=== PATIENT | male | born 1950 | race Caucasian/White ===

== ENCOUNTER 2021-07-18 06:04 | Inpatient (IN) ==
--- NOTE | 2021-07-01 09:56 | PAT Medication Instructions ---
Medication Instructions Date of Service July 01, 2021 Home Medications amlodipine 10 mg tablet 10 mg PO QPM aspirin 81 mg tablet,delayed release 81 mg PO QPM atorvastatin 40 mg tablet 20 mg PO HS calcitriol 0.25 mcg capsule 0.25 mcg PO QPM diclofenac sodium 1 % topical gel 2 g TOPICAL BID PRN finasteride 5 mg tablet 5 mg PO QPM fosinopril 40 mg tablet 40 mg PO QAM lidocaine 5 % topical patch 1 patch TOPICAL DAILY PRN metformin 500 mg tablet 500 mg PO BID multivitamin 1 tab PO QPM potassium chloride 20 mEq tablet,extended release 20 meq PO QAM sertraline 100 mg tablet 100 mg PO QAM sildenafil 100 mg tablet (Viagra) 100 mg PO DAILY PRN terazosin 10 mg capsule 10 mg PO QPM triamterene 75 mg-hydrochlorothiazide 50 mg tablet 1 tab PO QAM Continue as directed lidocaine 5 % topical patch 1 patch TOPICAL DAILY PRN (avoid placement near surgery site prior to surgery) ASK your prescriber and surgeon aspirin 81 mg tablet,delayed release 81 mg PO QPM STOP taking 24 hours before surgery diclofenac sodium 1 % topical gel 2 g TOPICAL BID PRN DO NOT take the morning of surgery fosinopril 40 mg tablet 40 mg PO QAM metformin 500 mg tablet 500 mg PO BID potassium chloride 20 mEq tablet,extended release 20 meq PO QAM sildenafil 100 mg tablet (Viagra) 100 mg PO DAILY PRN triamterene 75 mg-hydrochlorothiazide 50 mg tablet 1 tab PO QAM Take morning of surgery With a small sip of water, OTHERWISE NOTHING TO EAT OR DRINK AFTER MIDNIGHT: sertraline 100 mg tablet 100 mg PO QAM Take evening before surgery amlodipine 10 mg tablet 10 mg PO QPM atorvastatin 40 mg tablet 20 mg PO HS calcitriol 0.25 mcg capsule 0.25 mcg PO QPM finasteride 5 mg tablet 5 mg PO QPM metformin 500 mg tablet 500 mg PO BID multivitamin 1 tab PO QPM sildenafil 100 mg tablet (Viagra) 100 mg PO DAILY PRN (if needed) terazosin 10 mg capsule 10 mg PO QPM Other Notes If you have any questions please call us at [phone] or [phone] or [phone] or [phone]
--- NOTE | 2021-07-04 09:06 | Anesthesiology Consultation ---
Date of Service July 04, 2021 Assessment & Plan (1) Encounter for pre-operative examination: - Abnormal preop EKG: Awaiting PCP response. - COVID screening: Per assessment on 07/04: Travel screen- Patient had [place] family reunion with 40 people 06/28/21 (outdoor). Patient vaccinated. Preop COVID testing will be > 2 weeks after large gathering event. No known COVID-19 positive contacts or current COVID-19 related symptoms. Surgeon arranging preop COVID testing. Awaiting results. Chart Review Chart Review: Patient NOT seen in Pre Admission Testing Teaching & Discussion Pre-Anesthesia Teaching/Discussion Notes: Instructed NPO after midnight before surgery,except medications with 15 cc of water. Medication instructions provided according to the PAT guidelines. History Surgery Operation Date: 07/18/21 10:05 Proposed Procedures p L2-L4 Revision Decompression, L2-S1 Fusion, Spinal Cord Monitoring - Carlos Rogel, Height/Weight Height: 5 ft 8.5 in Weight: 98.8 kg Allergies Allergy/AdvReac Type Severity Reaction Status Date / Time No Known Allergies Allergy Verified 07/01/21 07:55 Medications Home Medications Medication Instructions Recorded Confirmed Last Taken amlodipine 10 mg tablet 10 mg PO QPM 07/01/21 07/01/21 Unknown aspirin 81 mg tablet,delayed 81 mg PO QPM 07/01/21 07/01/21 Unknown release atorvastatin 40 mg tablet 20 mg PO HS 07/01/21 07/01/21 Unknown calcitriol 0.25 mcg capsule 0.25 mcg PO QPM 07/01/21 07/01/21 Unknown diclofenac sodium 1 % topical gel 2 g TOPICAL BID PRN 07/01/21 07/01/21 Unknown finasteride 5 mg tablet 5 mg PO QPM 07/01/21 07/01/21 Unknown fosinopril 40 mg tablet 40 mg PO QAM 07/01/21 07/01/21 Unknown lidocaine 5 % topical patch 1 patch TOPICAL DAILY PRN 07/01/21 07/01/21 Unknown metformin 500 mg tablet 500 mg PO BID 07/01/21 07/01/21 Unknown multivitamin 1 tab PO QPM 07/01/21 07/01/21 Unknown potassium chloride 20 mEq 20 meq PO QAM 07/01/21 07/01/21 Unknown tablet,extended release sertraline 100 mg tablet 100 mg PO QAM 07/01/21 07/01/21 Unknown sildenafil 100 mg tablet (Viagra) 100 mg PO DAILY PRN 07/01/21 07/01/21 Unknown terazosin 10 mg capsule 10 mg PO QPM 07/01/21 07/01/21 Unknown triamterene 75 1 tab PO QAM 07/01/21 07/01/21 Unknown mg-hydrochlorothiazide 50 mg tablet Past Medical History Medical History Anxiety Arthritis Cancer BCC (neck) Chronic back pain Depression Diabetes NIDDM Enlarged prostate History of COVID-19 Dx 11/2020 ([facility]) > symptoms at time of SOB, fever, achiness > Hospitalized [facility]/PNA > resolved Hyperlipidemia Hypertension Post traumatic stress disorder Spinal stenosis Exercise / Class Metabolic Activity II 4-5 Yardwork/Stairs/Walk up hill Past Family History Family History Family/Other Family history of diabetes mellitus 2 GRANDCHILDREN Mother Family hx of colon cancer Past Surgical History Surgical History History of arthroscopy Left knee History of back surgery Lumbar History of carpal tunnel release Right History of colonoscopy Multiple History of laparotomy Removal one testicle History of oral surgery History of repair of rotator cuff Left History of tonsillectomy History of vasectomy x2 Hx of hand surgery Left thumb S/P foot surgery, right x4 (s/p injury) Past Anesthesia History No Hx of Anesthesia Complications and No Family Hx of Anesthesia Complications History of PONV No Hx of PONV and No Hx of Motion Sickness Social History Smoking Status: Former smoker Do You Dip or Chew Tobacco: No Smoking End Date: Quit 18 years ago Hx Alcohol Use: Yes Alcohol type: beer alcohol intake frequency: 3 or more drinks per day Alcohol Intake Frequency Comment: 2-3 beers/day Hx Substance Use: No Review of Systems Patient denies chest pain, shortness of breath, dyspnea on exertion, fever, chills, cough, wheezing, palpitations. Physical Exam Vital Signs VITALS BP 138/78 P 82 TEMP 97.8 SP02 95%RA RESP 18 PHYSICAL Full cervical extension range of motion. Full TMJ range of motion. TMD 3.5 finger breaths Mallampati Score 3 Dentition: 6 upper implants that attaches to plate Lungs: clear throughout to auscultation Cardiac: regular rate and rhythm, no murmurs noted Spine: normal Carotid arteries: negative bruit Extremities: no edema Lab Results Anesthesia Preop Results Results Anesthesia Widget: WBC 6.69 K/uL (4.8-10.8) 07/04/21 Hgb 15.0 g/dL (14.0-18.0) 07/04/21 Hct 42.7 % (42-52) 07/04/21 Plt 273 K/uL (130-400) 07/04/21 Na 134 mmol/L (136-145) L 07/04/21 K 3.2 mmol/L (3.5-5.1) L 07/04/21 Cl 95 mmol/L (98-107) L 07/04/21 CO2 34 mmol/L (21-32) H 07/04/21 BUN 12 mg/dl (7-18) 07/04/21 Creat 0.76 mg/dl (0.6-1.4) 07/04/21 Glucose Level 103 mg/dl (70-99) H 07/04/21 PT 10.1 Seconds (9.0-12.0) 07/04/21 PTT 25.6 Seconds (21.0-31.0) 07/04/21 INR 1.0 (0.9-1.1) 07/04/21 HA1c 5.6 % (4.5-5.6) 07/04/21 Urine Color Yellow 07/04/21 Urine Appearance Clear (Clear) 07/04/21 Urine pH 8.5 (4.5-7.5) H 07/04/21 Urine Specific [place] 1.014 (1.000-1.030) 07/04/21 Urine Protein Negative (Negative) 07/04/21 Urine Glucose (UA) Negative (Negative) 07/04/21 Urine Ketones Negative (Negative) 07/04/21 Urine Blood Negative (Negative) 07/04/21 Urine Nitrite Negative (Negative) 07/04/21 Urine Bilirubin Negative (Negative) 07/04/21 Urine Urobilinogen Negative (Negative) 07/04/21 Urine Leukocyte Esterase Negative (Negative) 07/04/21 Blood Type O Positive 07/04/21 Antibody Screen NEGATIVE 07/04/21 Lab Comments: Mild hypokalemia (already on potassium supplementation). At anesthesiologist discretion AM DOS if recheck potassium level needed AM DOS. Testing Electrocardiogram Date: 07/04/21 NSR at 76bpm. RBBB. Septal infarct, age undetermined. Chest X-Ray Date: 07/04/21 Findings: + NAD
[~2021-07-18 06:04] MED LIST: ACETAMINOPHEN 500 MG TAB PO SCH; CeleBREX 200 MG CAP PO SCH; GABAPENTIN 300 MG CAP PO SCH; LR 15ML/HR IV SCH; ceFAZolin 2000MG 2,000 MG/15 ML SYR IV SCH
[2021-07-18] MEDS ORDERED: ROCURONIUM BROMIDE 10 MG/ML 5 ML VIAL IV ONE (06:51)
[2021-07-18] MEDS ORDERED: ONDANSETRON INJ 2 MG/ML 2 ML VIAL ONE (06:51)
[2021-07-18] MEDS ORDERED: KETAMINE 50 MG/5 ML SYRINGE ONE (06:51)
[2021-07-18] MEDS ORDERED: fentaNYL citrate 100 MCG/2 ML VIAL ONE (06:51)
[2021-07-18] MEDS ORDERED: MIDAZOLAM HCL 1 MG/ML 2ML VIAL ONE (06:51)
[2021-07-18] MEDS ORDERED: DEXAMETHASONE SOD INJ 4 MG/ML VIAL ONE (06:51)
[2021-07-18] MEDS ORDERED: LIDOCAINE 2% 2 ML VIAL/AMP(20MG/ML) INFIL ONE (06:51)
[2021-07-18] MEDS ORDERED: PROPOFOL IV EMULSION 10 MG/ML 20 ML VIAL IV ONE (06:51)
[2021-07-18] MEDS ORDERED: GLYCOPYRROLATE 0.2 MG/ML VIAL ONE ×3 (06:58→10:31)
[2021-07-18] MEDS ORDERED: EPINEPHrine INJ 1 MG/ML AMP ONE (07:00)
[2021-07-18] MEDS ORDERED: BUPIVACAINE 0.5 % 5 MG/1 ML MPF 30ML VIAL ONE (07:00)
[2021-07-18] MEDS ORDERED: ATROPINE SULFATE 0.1 MG/ML 10ML SYR IV PRN (07:26)
[2021-07-18] MEDS ORDERED: HYDROmorphone INJ 2 MG/ML SYR/VIAL IV PRN (07:26)
[2021-07-18] MEDS ORDERED: ONDANSETRON INJ 2 MG/ML 2 ML VIAL IV PRN ×2 (07:26→12:05)
[2021-07-18] MEDS ORDERED: ePHEDrine sulfate 50 MG/ML AMP IV PRN (07:26)
--- NOTE | 2021-07-18 07:34 | History & Physical Bridge Note ---
Date of Service July 18, 2021 History & Physical Bridge Note I have examined the patient, reviewed the History & Physical and in the interval since the performance of the History & Physical I have noted the following changes of clinical significance: no changes noted
--- NOTE | 2021-07-18 07:37 | History & Physical Report ---
Date of Service July 18, 2021 Assessment & Plan (1) Neurogenic claudication due to lumbar spinal stenosis: Plan: L2-L4 revision decompression, L2-S1 fusion History of Present Illness Chief Complaint: Back and bilateral leg pain Primary Care Provider: NO PCP This is a 71-year-old male that presents with chronic back and bilateral leg pain after failing course of nonoperative care is here for surgical invention. Allergies Allergy/AdvReac Type Severity Reaction Status Date / Time No Known Allergies Allergy Verified 07/18/21 06:22 Home Medications Medication Instructions Recorded Confirmed Type amlodipine 10 mg tablet 10 mg PO QPM 07/01/21 07/18/21 History aspirin 81 mg tablet,delayed 81 mg PO QPM 07/01/21 07/18/21 History release atorvastatin 40 mg tablet 20 mg PO HS 07/01/21 07/18/21 History calcitriol 0.25 mcg capsule 0.25 mcg PO QPM 07/01/21 07/18/21 History diclofenac sodium 1 % topical gel 2 g TOPICAL BID PRN 07/01/21 07/18/21 History finasteride 5 mg tablet 5 mg PO QPM 07/01/21 07/18/21 History fosinopril 40 mg tablet 40 mg PO QAM 07/01/21 07/18/21 History lidocaine 5 % topical patch 1 patch TOPICAL DAILY PRN 07/01/21 07/18/21 History metformin 500 mg tablet 500 mg PO BID 07/01/21 07/18/21 History multivitamin 1 tab PO QPM 07/01/21 07/18/21 History potassium chloride 20 mEq 20 meq PO QAM 07/01/21 07/18/21 History tablet,extended release sertraline 100 mg tablet 100 mg PO QAM 07/01/21 07/18/21 History sildenafil 100 mg tablet (Viagra) 100 mg PO DAILY PRN 07/01/21 07/18/21 History terazosin 10 mg capsule 10 mg PO QPM 07/01/21 07/18/21 History triamterene 75 1 tab PO QAM 07/01/21 07/18/21 History mg-hydrochlorothiazide 50 mg tablet (Maxzide) Past Med/Surg History Medical History Anxiety Arthritis Cancer BCC (neck) Chronic back pain Depression Diabetes NIDDM Enlarged prostate History of COVID-19 Dx 11/2020 ([facility]) > symptoms at time of SOB, fever, achiness > Hospitalized [facility]/PNA > resolved Hyperlipidemia Hypertension Post traumatic stress disorder Spinal stenosis Surgical History History of arthroscopy Left knee History of back surgery Lumbar History of carpal tunnel release Right History of colonoscopy Multiple History of laparotomy Removal one testicle History of oral surgery History of repair of rotator cuff Left History of tonsillectomy History of vasectomy x2 Hx of hand surgery Left thumb S/P foot surgery, right x4 (s/p injury) Family History Family/Other Family history of diabetes mellitus 2 GRANDCHILDREN Mother Family hx of colon cancer Social History Smoking Status: Former smoker Smoking End Date: Quit 18 years ago; Second Hand Exposure: Yes (PARENTS SMOKED,FRIENDS); Do You Dip or Chew Tobacco: No; Hx Alcohol Use: Yes Alcohol type: beer Hx Substance Use: No Preferred Language: Sami Communication Ability: Effective Production Consultant Required: No Beliefs That Will Affect Care: None Current Living Situation: Spouse and Family current occupational status: retired Other Information That Helps Us Care for You: No Feels Safe at Home: Yes Safety Concerns: Feels Safe At This Time Assistive Devices: Glasses and Hearing Aid - Bilateral Assistive Devices Comment: IMPLANTS FRONT UPPER Physical Exam Physical Exam: Patient is alert and oriented Heart regular rhythm Lungs clear to auscultation Results & Data ([facility]) Vital Signs (Past 12 Hours) Vital Signs Temp Pulse Resp BP Pulse Ox 07/18/21 06:30 36.7 C 91 H 18 141/75 H 95
[2021-07-18] MEDS ORDERED: PHENYLEPHRINE 100MCG/ML 5ML SYR ONE (08:53)
[2021-07-18] MEDS ORDERED: ePHEDrine sulfate 50 MG/ML SYR ONE (08:53)
[2021-07-18] MEDS ORDERED: NEOSTIGMINE METHYLSULFATE 1 MG/ML 10ML VIAL ONE (10:31)
[2021-07-18] MEDS ORDERED: FLOSEAL HEMOSTATIC MATRIX 10ML TOP ONE (10:34)
--- NOTE | 2021-07-18 10:40 | Operative Report ---
Post Operative Report Pre & Post Diagnosis Operation Date: 07/18/21 07:45 Pre-Op Diagnosis: Spinal Stenosis, Lumbar Region with neurogenic Claudication Post-Op Diagnosis: Spinal Stenosis, Lumbar Region with neurogenic Claudication I identified the patient and participated in the time-out.: Yes Procedure Operation Date: 07/18/21 07:45 Actual Procedures #1 revision decompression with medial facetectomies and foraminotomies L2-3 L3-4 and L4-5. #2 posterior spinal fusion L2-3 L3-4 L4-5 L5-S1. #3 placed posterior segmental instrumentation L2-S1. #4 interbody fusion L3-4 and L4-L5. #5 placement peek cage 9 x 26 mm at L3-L4 and 12 x 26 mm at L4-L5. #6 placement locally harvested morselized autograft in the posterior gutters. #7 placement of infuse collagen sponge, master graft in the posterior gutters and I factor in the interbody space. Surgeon Carlos Rogel, DO [employer] Pro Delacruz Estimated Blood Loss 400 Findings See Below The patient is 5 foot 8 inches tall weighing over 9 kg with a BMI in excess of 33. Patient's body habitus did contribute to significant technical difficulty and at least 25% increase to the operative time. Specimens None Indications This is a 71-year-old male who presents above-mentioned diagnosis and course of nonoperative care is here for surgical invention. Description of Procedure Patient was met with identified informed consent obtained. Patient was then taken to the operative suite underwent ablation placed in a prone position the Elio table atop the Osman frame. All bony prominences well-padded eyes inspected to ensure no external pressure placed upon the. This point the lumbar spine was prepped and draped in normal sterile fashion. Sharp dissection with the assistance of Bovie cautery performed down to and exposing the remaining lamina and transverse processes of L2 L3-L4-L5 and S1 levels bilaterally. Then performed revision decompression medial facetectomies and foraminotomies L2-3 L3-4 and L4-5 addressing significant spinal stenosis. Pedicle screws were then placed in L2 L3-L4-L5 and S1 levels bilaterally with assistance of fluoroscopy and appropriate sized rita placed. By way of a transforaminal approach on the right complete discectomy of L4-L5 was performed endplates curetted to subcortically bone and a 12 x 26 mm peek cage filled I factor tapped in position. Then proceeded to L3-L4 and again by way of a transforaminal portion right a complete discectomy was performed endplates curetted to subcortically bone and a 9 x 26 mm peek cage filled I factor tapped in position. Rods were then locked in final position bilaterally. The transverse processes of L2 L3-L4-L5 and sacral ala burred to subcortically bone. Infuse collagen sponge master graft local autograft was placed in the posterior gutters. 15 round JAYLAN drain inserted. Incision was then closed with 1 Vicryl in the fascia 2-0 Vicryl subcutaneously and 4 Monocryl for final skin closure. Steri-Strip sterile dressings placed. Patient waken taken to PACU stable condition. Please note spinal cord monitoring was utilized at the procedure no changes noted. Lastly Pro Delacruz was present at the entire surgery involved in patient positioning complex portions of the surgery and final skin closure. I attest to the content of the Intraoperative Record and any orders documented therein. Any exceptions are noted below.
[2021-07-18] MEDS: fentaNYL citrate 100 MCG/2 ML VIAL IV PRN ×2 (11:23→11:28)
--- NOTE | 2021-07-18 11:36 | Fluoroscopy Report ---
FL lumbar spine 2-3V CLINICAL HISTORY: L2-L4 REVISION L2-S1 FUSION COMPARISON STUDY: None. FLUOROSCOPY TIME: 47 seconds. FLUOROSCOPIC IMAGES: 2 FINDINGS: Note is made of a multilevel posterior decompression. There are bilateral pedicle screws at the L2, L3, L4, L5 and S1 levels with interconnecting rods. There are L3-L4 and L4-L5 discectomies w ith interbody spacer placement. Hardware is intact. There are no unexpected radiopaque foreign bodies . IMPRESSION: Fluoroscopy provided during revision spine surgery with posterior decompression and fusi on extending from L2 through S1. ACT 112: Negative or not required by law. Electronically signed by: Nando Wilson M.D. 07/18/2021 11:34 AM
[2021-07-18] MEDS ORDERED: hydrOXYzine HCl 25 MG TAB PO PRN (12:05)
[2021-07-18] MEDS ORDERED: NALOXONE HCL 0.4 MG/1 ML VIAL/CARP IV PRN (12:05)
[2021-07-18] MEDS ORDERED: LORazepam 0.5 MG TAB PO PRN (12:05)
[2021-07-18] MEDS ORDERED: DO NOT ADMINISTER FLU VACCINE PRN (12:05)
[2021-07-18] MEDS ORDERED: ALUMINUM/MAGNESIUM SUSP 30 ML UDC PO PRN (12:05)
[2021-07-18] MEDS ORDERED: DO NOT ADMINISTER PNEUMOCOCCAL VACCINE PRN (12:05)
[2021-07-18] MEDS ORDERED: SOD PHOSPHATE/SOD BIPHOSPHATE ENEMA 132 ML BTL PR PRN (12:05)
[2021-07-18] MEDS ORDERED: METOCLOPRAMIDE HCL INJ 5 MG/ML 2 ML VIAL IV PRN (12:05)
[2021-07-18] MEDS ORDERED: PHARMACY GLYCEMIC MGMT CONSULT PRN (12:05)
[2021-07-18] MEDS ORDERED: PROMETHAZINE HCL 12.5 MG in SODIUM CHLORIDE 0.9% 50 ML IV PRN (12:05)
[2021-07-18] MEDS ORDERED: ACETAMINOPHEN 1,000 MG/100 ML VIAL IV PRN (12:05)
[2021-07-18] MEDS ORDERED: ONDANSETRON 4 MG OD TAB PO PRN (12:05)
[2021-07-18] MEDS ORDERED: bisacodyL 10 MG SUPP PR PRN (12:05)
[2021-07-18] MEDS ORDERED: LORazepam 0.5 MG/1 ML VIAL IV PRN (12:05)
[2021-07-18] MEDS ORDERED: HYDROmorphone INJ 0.5 MG/0.5 ML SYR IV PRN (12:05)
[2021-07-18] MEDS ORDERED: SODIUM CHLORIDE 0.9% 1000ML 1,000 ML IV SCH (12:05)
[2021-07-18] MEDS ORDERED: traMADol HCL 50 MG TABLET PO PRN (12:05)
[2021-07-18] MEDS ORDERED: MAGNESIUM HYDROXIDE SUSP 30 ML UDC PO PRN (12:05)
[2021-07-18] MEDS ORDERED: diphenhydrAMINE Capsule 25 MG CAP PO PRN (12:05)
[2021-07-18] MEDS ORDERED: FAMOTIDINE 20 MG TAB PO PRN (12:05)
[2021-07-18] MEDS ORDERED: ACETAMINOPHEN 500 MG TAB PO PRN (12:05)
[2021-07-18] MEDS: INSULIN ASPART 100 UNITS/ML 3 ML PEN SC SCH ×4 (12:58→20:53)
[2021-07-18] MEDS ORDERED: NovoLIN-N (NPH) PER UNIT CHARGE SQ ONE (13:00)
--- NOTE | 2021-07-18 13:15 | Anesthesiology Progress Note ---
Date of Service July 18, 2021 Anesthesia Post Procedure Vital Signs Vital Signs: Temp Pulse Pulse Resp BP BP Pulse Ox 07/18/21 13:12 36.7 C 67 16 118/74 98 07/18/21 12:30 37.4 C 71 16 106/68 99 07/18/21 11:50 36.4 C L 73 17 112/66 95 07/18/21 11:40 79 12 109/55 L 96 07/18/21 11:30 74 12 131/69 97 07/18/21 11:20 75 12 131/67 98 07/18/21 11:10 79 12 131/86 99 07/18/21 11:03 36.5 C 79 14 151/75 H 98 07/18/21 06:30 36.7 C 91 H 18 141/75 H 95 Pain Intensity Lower Back: Pain Intensity: 5 Transfer of Care Handoff Completed per policy Notes Mental Status: alert / awake / arousable and participated in evaluation Patient Amnestic to Procedure: Yes Nausea / Vomiting: adequately controlled Pain: adequately controlled Airway Patency, RR, SpO2: stable & adequate BP & HR: stable & adequate Hydration State: stable & adequate Anesthetic Complications: no major complications apparent and Pt Satisfied with anesthetic care
--- NOTE | 2021-07-18 14:16 | Pharmacy Report ---
Pharmacy Glycemic Short Note 2 - Date of Service July 18, 2021 - Glycemic Short BSG Results (Last 24 hours): 07/18/21 07/18/21 06:28 11:06 POC Glucose 129 H 149 H OUTPATIENT ANTIDIABETIC REGIMEN: * Metformin 500mg PO BIDM * A1c = 5.6% on 07/04/21 ASSESSMENT: * 71yo T2DM male with excellent outpatient control * Pt is maintained on oral antidiabetic agents as an outpatient * Oral agents are not recommended for inpatient use d/t drug interactions, changing PO intake, and difficulty titrating for acute hyper/hypoglycemia. ADA recommends re-initiating outpatient oral agents 1-2 days prior to discharge if/when appropriate if they were held on admission. * Will hold oral agents for admission and utilize SQ basal bolus insulin regimen which is the recommended regimen for inpatient glycemic control. * Will initiate weight based insulin dosing for insulin yash patient and titrate based on BSG trends. * Pt did receive Dexamethasone 8mg IV in OR- will give a one time dose of NPH to cover the hyperglycemic effects of a one time long acting steroid. Will dose conservatively since BSG is NOT above 150 mg/dl PLAN FOR INPATIENT GLYCEMIC CONTROL: * Hold outpatient oral diabetes medications * Basal insulin * NPH 25 units (0.25 units/kg) SQ SQ x 1 dose NOW * Bolus insulin * NovoLog per scale ACHS or Q6hrs while NPO * Goal Range: Low 110 mg/dL - High 140 mg/dL * Correction Factor: 20 mg/dL/unit * Nutritional / Prandial insulin per carb ratio of 1 unit per 7 grams CHO consumed PLAN FOR DISCHARGE: * No changes needed to outpatient regimen at NH. A1c is in goal range.
[2021-07-18] MEDS: ceFAZolin 2000MG 2,000 MG/15 ML SYR IV SCH ×2 (14:59→23:30)
[2021-07-18] MEDS: oxyCODONE HCL IR 5 MG TAB (IMMEDIATE RELEASE) PO PRN ×2 (15:05→20:53)
--- NOTE | 2021-07-18 15:54 | Hospitalist Consultation ---
Date of Consultation July 18, 2021 Assessment & Plan (1) Neurogenic claudication due to lumbar spinal stenosis: Pro Guillen is a 71-year-old male with a past medical history of anxiety, arthritis, BCC of the neck, depression, jah-ltqjwns-rpvhzetex diabetes mellitus, BPH, hyperlipidemia, hypertension, PTSD, and spinal stenosis who was admitted to [facility] for planned surgical intervention of spinal stenosis with neurogenic claudication. Medicine has been consulted for postoperative management, on 07/18/2021 patient underwent #1 revision decompression with medial facetectomies and foraminotomies L2-3 L3-4 and L4-5. #2 posterior spinal fusion L2-3 L3-4 L4-5 L5-S1. #3 placed posterior segmental instrumentation L2-S1. #4 interbody fusion L3-4 and L4-L5. #5 placement peek cage 9 x 26 mm at L3-L4 and 12 x 26 mm at L4-L5. #6 placement locally harvested morselized autograft in the posterior gutters. #7 placement of infuse collagen sponge. Spinal stenosis, lumbar with neurogenic claudication status post surgical intervention Management per primary surgical team Fluid management per primary surgical team (2) Anxiety: History of anxiety Continue sertraline 100 mg daily (3) Diabetes: Noninsulin-dependent type 2 diabetes mellitus BSG postop 149 Hold home metformin -Last A1c 06/2021 5.6%, excellent control -Goal BSG 061169, weight-based SSI correction factor 50, ratio 20 (4) Enlarged prostate: BPH Continue Terazosin 10 mg p.o. nightly, finasteride 5 mg p.o. nightly (5) Hyperlipidemia: Hyperlipidemia Continue atorvastatin 20 mg p.o. at bedtime Resume aspirin 81 mg daily 24 hours postop or per primary team recommendations (6) Post traumatic stress disorder: At baseline per patient. Reports good benefit from SSRI as otherwise noted. Continue SSRI. Patient feels that he overall is doing well and is at his normal baseline, has not had recent nightmares or exacerbation. No acute change in management at this time, no SI/HI (7) Hypertension: Hypertension Normotensive postoperatively Hold Maxide, may resume 24 hours postop Hold fosinopril, resume 24 hours postop Continue amlodipine 10 mg nightly DVT prophylaxis: Per primary team Diet/fluids: Per primary team In summary Pro Guillen is a 71-year-old male who is doing well postoperatively following surgical intervention for spinal stenosis on 07/18/2021. His diabetes is well controlled outpatient with an A1c of 5.6%, may hold home metformin and will add on very gentle sliding scale insulin. May resume home regimen on discharge. He is normotensive following surgery, may resume amlodipine tonight and hold [place]/thiazide and resume tomorrow. History of Present Illness Reason for Consultation: Postoperative management of hypertension Requesting Physician: Carlos Rogel DO Attending Physician: Carlos Rogel DO History of Present Illness Pro Guillen is a 71-year-old male with a past medical history of anxiety, arthritis, BCC of the neck, depression, cfi-rkvwvss-bdifhzjpv diabetes mellitus, BPH, hyperlipidemia, hypertension, PTSD, and spinal stenosis who was admitted to [facility] for planned surgical intervention of spinal stenosis with neurogenic claudication. Medicine has been consulted for postoperative management, on 07/18/2021 patient underwent #1 revision decompression with medial facetectomies and foraminotomies L2-3 L3-4 and L4-5. #2 posterior spinal fusion L2-3 L3-4 L4-5 L5-S1. #3 placed posterior segmental instrumentation L2-S1. #4 interbody fusion L3-4 and L4-L5. #5 placement peek c age 9 x 26 mm at L3-L4 and 12 x 26 mm at L4-L5. #6 placement locally harvested morselized autograft in the posterior gutters. #7 placement of infuse collagen sponge. Mr. Guillen reports he has several medical issues as follows: 1. T2DM. Well controlled on metformin outpt. No recent change in tx. No recent lows/highs. A1C <6% last month. 2. PTSD from [place]. "I handle OK day to day, sometimes more depressed and upset than other days. Right now feeling pretty good." Takes 100mg daily of sertraline which works very well for him. No concerns at this time. 3. HTN. Takes amlodipine, maxzide, and fosinipril at home. Home BP is ~130s/70- 80s at home. No problems with lightheadedness or dizziness normally, but endorses a history of some lightheadedness with standing which resolves with waiting ~5 seconds or so after standing. No hx of passing out, but has fallen in the past because of it but notes he was much weaker when that happened 2/2 COVID PNA requiring home oxygen and had gone up a full flight of stairs. Feels he has recovered compeltely from covid at this time. Has had the Moderna vaccine, second dose was in April. 4. Hx of enlarged prostate. Brother and father had prostate cancer. Mr. Guillen has had PSA checks which were elevated but normal for age per his outside physician. [facility]. is continuing to follow for PSA checks and managing symptomatic prostate enlargement at this time. No recent change. Denies hx of kidney, heart, lung disease. Medical History: Reviewed Surgical History: Reviewed Family History: Reviewed Allergies: NKDA, allergic to bees and cat gut sutures Social History: No tobacco product use, quit a poke 18 years ago and smoked a pipe prior in addition to 1/2 ppd for 20 years. Beer ~3x per day, last drink yesterday. No history of withdrawal, shakes, tremors. Last day without alcohol [facility] 9 days with no sx of withdrawal. Denies recreational drug use. CODE STATUS: Full Code Allergies Allergy/AdvReac Type Severity Reaction Status Date / Time No Known Allergies Allergy Verified 07/18/21 06:22 Home Medications Medication Instructions Recorded Confirmed Type amlodipine 10 mg tablet 10 mg PO QPM 07/01/21 07/18/21 History aspirin 81 mg tablet,delayed 81 mg PO QPM 07/01/21 07/18/21 History release atorvastatin 40 mg tablet 20 mg PO HS 07/01/21 07/18/21 History calcitriol 0.25 mcg capsule 0.25 mcg PO QPM 07/01/21 07/18/21 History diclofenac sodium 1 % topical gel 2 g TOPICAL BID PRN 07/01/21 07/18/21 History finasteride 5 mg tablet 5 mg PO QPM 07/01/21 07/18/21 History fosinopril 40 mg tablet 40 mg PO QAM 07/01/21 07/18/21 History lidocaine 5 % topical patch 1 patch TOPICAL DAILY PRN 07/01/21 07/18/21 History metformin 500 mg tablet 500 mg PO BID 07/01/21 07/18/21 History multivitamin 1 tab PO QPM 07/01/21 07/18/21 History potassium chloride 20 mEq 20 meq PO QAM 07/01/21 07/18/21 History tablet,extended release sertraline 100 mg tablet 100 mg PO QAM 07/01/21 07/18/21 History sildenafil 100 mg tablet (Viagra) 100 mg PO DAILY PRN 07/01/21 07/18/21 History terazosin 10 mg capsule 10 mg PO QPM 07/01/21 07/18/21 History triamterene 75 1 tab PO QAM 07/01/21 07/18/21 History mg-hydrochlorothiazide 50 mg tablet (Maxzide) oxycodone 5 mg tablet 5 mg PO Q6H PRN #30 tab 07/18/21 Rx tramadol 50 mg tablet 50 mg PO Q6H PRN #30 tab 07/18/21 Rx Patient History Medical History (Updated 07/18/21 @ 15:45 by Gabriel Infante MD) Anxiety Arthritis Cancer BCC (neck) Chronic back pain Depression Diabetes NIDDM Enlarged prostate History of COVID-19 Dx 11/2020 ([facility]) > symptoms at time of SOB, fever, achiness > Hospitalized [facility] [place]/PNA > resolved Hyperlipidemia Hypertension Post traumatic stress disorder Spinal stenosis Surgical History History of arthroscopy Left knee History of back surgery Lumbar History of carpal tunnel release Right History of colonoscopy Multiple History of laparotomy Removal one testicle History of oral surgery History of repair of rotator cuff Left History of tonsillectomy History of vasectomy x2 Hx of hand surgery Left thumb S/P foot surgery, right x4 (s/p injury) Family History Family/Other Family history of diabetes mellitus 2 GRANDCHILDREN Mother Family hx of colon cancer Social History Smoking Status: Former smoker Smoking End Date: Quit 18 years ago; Second Hand Exposure: Yes (PARENTS SMOKED,FRIENDS); Do You Dip or Chew Tobacco: No; Hx Alcohol Use: Yes Alcohol type: beer Hx Substance Use: No Preferred Language: Monegasque Communication Ability: Effective Assistant General Manager Required: No Beliefs That Will Affect Care: None marital status: Current Living Situation: Spouse and Family current occupational status: retired Other Information That Helps Us Care for You: No Feels Safe at Home: Yes Safety Concerns: Feels Safe At This Time Assistive Devices: None Assistive Devices Comment: IMPLANTS FRONT UPPER Review of Systems Review of Systems: Constitutional: Denies fever, chills, malaise, weight change Eyes: Denies double vision, vision change, eye pain ENT: Denies ear pain, sore throat, sinus pain Cardiovascular: Denies Chest pain, chest pressure, palpitations, extremity swelling Respiratory: Denies shortness of breath, cough, sputum production, difficulty breathing Gastrointestinal: Denies abdominal pain, nausea, vomiting, constipation, diarrhea Genitourinary: Denies pain with urination, urinary urgency, urinary frequency Musculoskeletal: Denies weakness, muscle aches/pain, joint aches/pain Integumentary:Denies rash, lesions, bruising Neurological: Denies headache, numbness, tingling, focal weakness Endorses pain at his mid lower back which was at 6 and which is now 2/10 following pain medication. Endorses feeling squeezing from SCDs, otherwise denies numbness/tingling at this time. Physical Exam Physical Exam: General: A&Ox3. NAD. Cooperative. Skin: L superior anterior chest with ~1cm round patch of dry skin with flake at site of prior wart removal per pt. R lateral shoulder with palpable lateral minmally tender lump consistent w/ muscle retraction. HEENT: Atraumatic, normocephalic. Pulm: CTAB A&P. -wheezes, -rales, -rhonchi. Symmetrical chest rise. No increase work of breathing. No respiratory distress. Cardiac: RRR, -mrg. Radial pulses intact and symmetrical. Abdominal: Nontender, nondistended, soft. BS present. Extre: Onchomycosis of hallux Back: Sanginous drainage into JAYLAN drain from surgical site. Surgical dressing over low mid back C/D/I CRANIAL NERVES: II: Pupils equal and reactive, no relative afferent pupillary defect, no VF cuts III, IV, : EOM intact, no gaze preference or deviation, no nystagmus. VII: no asymmetry, no nasolabial fold flattening VIII: normal hearing to speech IX, X: normal palatal elevation, no uvular deviation MOTOR: RUE: 5/5 Shoulder internal rotation, external rotation, flexion, extension, abduction, adduction 5/5 Elbow flexion/extension, wrist flexion/extension 5/5 grid caster strength, finger flexion/extension, interosseus LUE: 5/5 Shoulder internal rotation, external rotation, flexion, extension, abduction, adduction 5/5 Elbow flexion/extension, wrist flexion/extension 5/5 grid caster strength, finger flexion/extension, interosseus RLE: 5/5 ankle dorsiflexion/plantarflexion LLE: 5/5 ankle dorsiflexion/plantarflexion Rdial, Pt pulse intact bilaterally SENSORY: Normal to touch in upper and lower extremities without deficit or asymmetry Results & Data Results & Data ([facility]) Vital Signs (Past 12 Hours) Vital Signs Temp Pulse Pulse Resp BP BP Pulse Ox 07/18/21 15:00 36.7 C 69 16 127/75 93 07/18/21 14:03 128/73 07/18/21 14:00 36.4 C L 68 16 176/84 H 98 07/18/21 13:12 36.7 C 67 16 118/74 98 07/18/21 12:30 37.4 C 71 16 106/68 99 07/18/21 11:50 36.4 C L 73 17 112/66 95 07/18/21 11:40 79 12 109/55 L 96 07/18/21 11:30 74 12 131/69 97 07/18/21 11:20 75 12 131/67 98 07/18/21 11:10 79 12 131/86 99 07/18/21 11:03 36.5 C 79 14 151/75 H 98 07/18/21 06:30 36.7 C 91 H 18 141/75 H 95 PG Care Time/CCT Total # of Minutes Spent Total Time Spent with Patient: Total time spent is greater than 50% in coordination of care (as documented) at patient's floor/unit and/or counseling patient: Coding Level of Care Code 96403 Inpt Consult Level 3 Diagnoses Neurogenic claudication due to lumbar spinal stenosis M48.062 Anxiety F41.9 Diabetes E11.9 Enlarged prostate N40.0 Hyperlipidemia E78.5 Hypertension I10 Post traumatic stress disorder F43.10
[2021-07-18] MEDS ORDERED: CARBOHYDRATES FOR HYPOGLYCEMIA PO PRN (16:23)
[2021-07-18] MEDS ORDERED: GLUCAGON FOR INJ 1 MG VIAL SQ PRN (16:23)
[2021-07-18] MEDS ORDERED: GLUCOSE 10 TABS/TUBE PO PRN (16:23)
[2021-07-18] MEDS ORDERED: DEXTROSE 50% 50 ML SYRINGE IV PRN (16:23)
[2021-07-18] MEDS ORDERED: GLUCOSE 40% GEL 15 GM TUBE PO PRN (16:23)
[2021-07-18] MEDS ORDERED: INSULIN ASPART 100 UNITS/ML 3 ML PEN SC SCH (16:30)
[2021-07-18] MEDS: MULTIVITAMIN TAB PO SCH (20:53)
[2021-07-18] MEDS: FINASTERIDE 5 MG TAB PO SCH (20:53)
[2021-07-18] MEDS: amLODIPine BESYLATE 5 MG TAB PO SCH (20:54)
[2021-07-18] MEDS: TERAZOSIN HCL 5 MG CAP PO SCH (20:54)
[2021-07-18] MEDS: DOCUSATE SODIUM/SENNA 50/8.6MG TAB PO SCH (20:55)
[2021-07-18] MEDS: ASPIRIN 81 MG ECTAB PO SCH (20:55)
[2021-07-18] MEDS: CALCITRIOL 0.25 MCG CAPSULE PO SCH (20:55)
[2021-07-18] MEDS: ATORVASTATIN 20 MG TAB PO SCH (20:55)
[2021-07-19] MEDS: POLYETHYLENE (MIRALAX) 17 GM PACK PO SCH ×4 (05:33→23:35)
[2021-07-19 06:35] LABS: Basophils # (auto) 0.01 K/uL (0-0.2); Basophils % (auto) 0.1 %; Eosinophils # (auto) 0.03 K/uL (0-0.5); Eosinophils % (auto) 0.3 %; Hematocrit (blood only) 33.9 % (42-52); Hemoglobin 11.5 g/dL (14.0-18.0); Immature Granulocytes # (auto) 0.03 K/uL (0.00-0.02); Immature Granulocytes % (auto) 0.3 %; Lymphocytes # (auto) 0.89 K/uL (1.2-3.4); Lymphocytes % (auto) 8.1 %; Mean Corpuscular Hemoglobin 30.6 pg (25-34); Mean Corpuscular Hgb Conc 33.9 g/dL (32-36); Mean Corpuscular Volume 90.2 fL (80-100); Mean Platelet Volume 9.8 fL (7.4-10.4); Monocytes # (auto) 1.08 K/uL (0.11-0.59); Monocytes % (auto) 9.8 %; Neutrophils # (auto) 8.94 K/uL (1.4-6.5); Neutrophils % (auto) 81.4 %; Platelet Count 238 K/uL (130-400); RDW Coefficient of Variation 13.8 % (11.5-14.5); RDW Standard Deviation 45.2 fL (36.4-46.3); Red Blood Count 3.76 M/uL (4.7-6.1); White Blood Count 10.98 K/uL (4.8-10.8)
[2021-07-19 07:00] LABS: BUN Creatinine Ratio 12.9 (10-20); Creatinine Clr Calc Pharmacy 95.1 ml/min; Est GFR (African American) 103.2 ml/min; Est GFR (Non-African American) 89.1 ml/min; Potassium 3.4 mmol/L (3.5-5.1)
[2021-07-19] MEDS: lisinopril 40 MG TAB PO SCH (08:06)
[2021-07-19] MEDS: SERTRALINE HCL 100 MG TABLET PO SCH (08:06)
[2021-07-19] MEDS: POTASSIUM CHLORIDE CRTAB 20 MEQ TABCR PO SCH (08:06)
[2021-07-19] MEDS: TRIAMTERENE/HCTZ 37.5/25MG TAB PO SCH (08:06)
--- NOTE | 2021-07-19 08:33 | Orthopedic Progress Note ---
Date of Service July 19, 2021 Assessment & Plan (1) Neurogenic claudication due to lumbar spinal stenosis: Plan: This time initiate physical therapy monitor his JAYLAN output hopefully discharge home in the next few days. Admission and Anticipated Discharge Date Admission Date: July 18, 2021 Subjective Patient's back pain is controlled leg symptoms improved Physical Exam Physical Exam: Patient is comfortable. Is good strength testing. Results & Data ([facility]) Vital Signs (Past 12 Hours) Vital Signs Temp Pulse Resp BP Pulse Ox 07/19/21 07:37 36.6 C 74 18 144/70 H 96 07/19/21 04:09 36.5 C 67 17 115/67 94 07/18/21 23:16 36.5 C 71 17 125/74 97
[2021-07-19] MEDS: INSULIN ASPART 100 UNITS/ML 3 ML PEN SC SCH ×4 (08:49→20:39)
[2021-07-19] MEDS: oxyCODONE HCL IR 5 MG TAB (IMMEDIATE RELEASE) PO PRN ×3 (10:37→19:49)
[2021-07-19] MEDS ORDERED: POTASSIUM CHLORIDE CRTAB 20 MEQ TABCR PO ONE (12:00)
--- NOTE | 2021-07-19 14:51 | Hospitalist Progress Note ---
Date of Service July 19, 2021 Assessment & Plan (1) Neurogenic claudication due to lumbar spinal stenosis: Plan: Pro Guillen is a 71-year-old male with a past medical history of anxiety, arthritis, BCC of the neck, depression, rrz-cjuoyud-vqbfvpsxi diabetes mellitus, BPH, hyperlipidemia, hypertension, PTSD, and spinal stenosis who was admitted to [facility] for planned surgical intervention of spinal stenosis with neurogenic claudication. Medicine has been consulted for postoperative management, on 07/18/2021 patient underwent #1 revision decompression with medial facetectomies and foraminotomies L2-3 L3-4 and L4-5. #2 posterior spinal fusion L2-3 L3-4 L4-5 L5-S1. #3 placed posterior segmental instrumentation L2-S1. #4 interbody fusion L3-4 and L4-L5. #5 placement peek cage 9 x 26 mm at L3-L4 and 12 x 26 mm at L4-L5. #6 placement locally harvested morselized autograft in the posterior gutters. #7 placement of infuse collagen sponge. POD #2 Recommend adequate postoperative pain management, PT/OT, incentive spirometry, and DVT prophylaxisat discretion of primary team (2) Hypokalemia: Plan: * With review of old records, seems to be ongoing. * Likely was related to his triamterene/HCTZ * Will supplement * Continue home potassium chloride 20 mEq once daily * Follow BMP, magnesium level in the morning and replace as needed (3) Anxiety: Plan: History of anxiety Continue sertraline 100 mg daily (4) Diabetes: Plan: Noninsulin-dependent type 2 diabetes mellitus BSG postop 149 Hold home metformin -Last A1c 06/2021 5.6%, excellent control -Goal BSG 755000, weight-based SSI correction factor 50, ratio 20 -Pharmacy glycemic consultation is managing (5) Enlarged prostate: Plan: BPH Continue Terazosin 10 mg p.o. nightly, finasteride 5 mg p.o. nightly (6) Hyperlipidemia: Plan: Hyperlipidemia Continue atorvastatin 20 mg p.o. at bedtime Resume aspirin 81 mg daily 24 hours postop or per primary team recommendations (7) Post traumatic stress disorder: Plan: At baseline per patient. Reports good benefit from SSRI as otherwise noted. Continue SSRI. Patient feels that he overall is doing well and is at his normal baseline, has not had recent nightmares or exacerbation. No acute change in management at this time, no SI/HI (8) Hypertension: Plan: Hypertension Normotensive postoperatively cont Maxide, norvasc and amlodipine Plan: DVT prophylaxis: Per primary team Diet/fluids: Per primary team Medicine will sign off; however, do not hesitate to reconsult should a problem arise. Thank you for allowing up to participate in the care of this patient. Admission and Anticipated Discharge Date Admission Date: July 18, 2021 Supervising Physician Co-Signing Physician Notes INOCENCIA Supervision Note: I did not personally see or examine the patient today, but I verified all dela cruz points of INOCENCIA Ford's assessment and plan with the following exceptions/additions: None Subjective Patient seen on daily rounds today. POD #2 s/p lumbar decompression with fusion and caging. Overall, pain is adequately controlled. Tolerating pain medication without ill effects. Voiding without issues. Has not yet had a BM but is passing flatus. Denies abdominal pain, nausea or vomiting. So far, ambulating with therapy services. Hopeful to be discharged to home with home PT OT when meeting his therapy goals (including step training). Patient lives in a one- story home with his but has 2 steps leading into the home. Review of Systems Review of Systems: All systems reviewed and are unremarkable except as noted in HPI and below Denies fevers, chills, headache, nasal congestion, sore throat, cough, chest pain, shortness of breath, abdominal pain, nausea, vomiting, dysuria, hematuria, frequency, skin lesions or rashes. Physical Exam Physical Exam: General: Resting comfortably in his hospital chair. NAD. Neck: No JVD. Negative hepatojugular reflex Cardiac: RRR without M/G/R Lungs: CTA without W/R/R Abdomen: Normoactive X4. Soft and nontender in all quadrants. Back: Surgical dressing dry and intact. Indwelling JAYLAN drain with bloody drainage. Extremities: No peripheral clubbing cyanosis or edema Neuro: A&O X4 cranial nerves II through XII are grossly intact no focal neuro deficits Skin: No obvious skin lesions or rashes Results & Data Results & Data ([facility]) Vital Signs (Past 12 Hours) Vital Signs Temp Pulse Resp BP BP Pulse Ox 07/19/21 12:45 37.3 C 88 20 143/73 H 97 07/19/21 07:37 36.6 C 74 18 144/70 H 96 07/19/21 04:09 36.5 C 67 17 115/67 94 Laboratory Results 07/19/21 05:34 07/19/21 05:34 PG Care Time/CCT Total # of Minutes Spent Total Time Spent with Patient: Total time spent is greater than 50% in coordination of care (as documented) at patient's floor/unit and/or counseling patient: C[place] [address] Inpt Consult Level 3 Patient Type Established Medical Decision Making Low Complexity Diagnoses Neurogenic claudication due to lumbar spinal stenosis M48.062 Anxiety F41.9 Diabetes E11.9 Enlarged prostate N40.0 Hyperlipidemia E78.5 Post traumatic stress disorder F43.10 Hypertension I10 Hypokalemia E87.6
[2021-07-19] MEDS: ATORVASTATIN 20 MG TAB PO SCH (20:38)
[2021-07-19] MEDS: amLODIPine BESYLATE 5 MG TAB PO SCH (20:38)
[2021-07-19] MEDS: CALCITRIOL 0.25 MCG CAPSULE PO SCH (20:38)
[2021-07-19] MEDS: TERAZOSIN HCL 5 MG CAP PO SCH (20:38)
[2021-07-19] MEDS: ASPIRIN 81 MG ECTAB PO SCH (20:38)
[2021-07-19] MEDS: MULTIVITAMIN TAB PO SCH (20:39)
[2021-07-19] MEDS: DOCUSATE SODIUM/SENNA 50/8.6MG TAB PO SCH (20:39)
[2021-07-19] MEDS: FINASTERIDE 5 MG TAB PO SCH (20:39)
[2021-07-20] MEDS: HYDROmorphone INJ 1 MG/ML SYRINGE IV PRN ×2 (00:12→20:48)
[2021-07-20] MEDS: POLYETHYLENE (MIRALAX) 17 GM PACK PO SCH ×4 (05:41→23:42)
[2021-07-20 06:29] LABS: Basophils # (auto) 0.01 K/uL (0-0.2); Basophils % (auto) 0.1 %; Eosinophils # (auto) 0.08 K/uL (0-0.5); Eosinophils % (auto) 0.8 %; Hematocrit (blood only) 30.8 % (42-52); Hemoglobin 10.4 g/dL (14.0-18.0); Immature Granulocytes # (auto) 0.02 K/uL (0.00-0.02); Immature Granulocytes % (auto) 0.2 %; Lymphocytes # (auto) 0.83 K/uL (1.2-3.4); Lymphocytes % (auto) 8.1 %; Mean Corpuscular Hemoglobin 31.8 pg (25-34); Mean Corpuscular Hgb Conc 33.8 g/dL (32-36); Mean Corpuscular Volume 94.2 fL (80-100); Mean Platelet Volume 9.9 fL (7.4-10.4); Monocytes # (auto) 1.18 K/uL (0.11-0.59); Monocytes % (auto) 11.5 %; Neutrophils # (auto) 8.17 K/uL (1.4-6.5); Neutrophils % (auto) 79.3 %; Platelet Count 219 K/uL (130-400); RDW Standard Deviation 48.5 fL (36.4-46.3); Red Blood Count 3.27 M/uL (4.7-6.1); White Blood Count 10.29 K/uL (4.8-10.8)
[2021-07-20 07:08] LABS: BUN Creatinine Ratio 15.4 (10-20); Creatinine Clr Calc Pharmacy 74.4 ml/min; Est GFR (African American) 85.1 ml/min; Est GFR (Non-African American) 73.4 ml/min; Magnesium 1.7 mg/dl (1.8-2.4)
[2021-07-20] MEDS ORDERED: MAGNESIUM SULFATE / D5W 1 GM/100 ML BAG IV ONE (08:00)
[2021-07-20] MEDS: dexAMETHasone 8 MG in SYRINGE 0 ML IV SCH (08:03)
[2021-07-20] MEDS: TRIAMTERENE/HCTZ 37.5/25MG TAB PO SCH (08:03)
[2021-07-20] MEDS: SERTRALINE HCL 100 MG TABLET PO SCH (08:03)
[2021-07-20] MEDS: POTASSIUM CHLORIDE CRTAB 20 MEQ TABCR PO SCH (08:04)
[2021-07-20] MEDS: lisinopril 40 MG TAB PO SCH (08:04)
[2021-07-20] MEDS: INSULIN ASPART 100 UNITS/ML 3 ML PEN SC SCH ×4 (08:05→20:50)
--- NOTE | 2021-07-20 11:23 | Orthopedic Progress Note ---
Date of Service July 20, 2021 Assessment & Plan (1) Neurogenic claudication due to lumbar spinal stenosis: Plan: Stable continue physical therapy monitor his JAYLAN output anticipate discharge home tomorrow. Admission and Anticipated Discharge Date Admission Date: July 18, 2021 Subjective Patient's back pain is controlled leg symptoms markedly improved Physical Exam Physical Exam: Patient has good strength testing appears comfortable. Results & Data ([facility]) Vital Signs (Past 12 Hours) Vital Signs Temp Pulse Resp BP Pulse Ox 07/20/21 06:53 36.8 C 94 H 18 129/69 95 07/19/21 23:27 37.1 C 96 H 18 149/71 H 93
--- NOTE | 2021-07-20 14:32 | Pharmacy Report ---
Pharmacy Glycemic Short Note 2 - Date of Service July 20, 2021 - Glycemic Short BSG Results (Last 24 hours): 07/19/21 07/19/21 07/20/21 18:05 20:35 05:31 Glucose 112 H POC Glucose 116 H 98 07/20/21 07/20/21 07:28 12:00 Glucose POC Glucose 108 H 123 H OUTPATIENT ANTIDIABETIC REGIMEN: * Metformin 500mg PO BIDM * A1c = 5.6% on 07/04/21 ASSESSMENT: 07/20/21 * Patient's blood sugars well controlled, never received any basal for steroids, but did have tighter CF/CR of 20/7 on 07/18 * CF/CR loosened to 25/15 yesterday as steroids wore off, Dexamethasone 8mg IV daily restarted today, tightened back to 20/7 * No basal needed * Likely DC tomorrow 07/18/21 * 71yo T2DM male with excellent outpatient control * Pt is maintained on oral antidiabetic agents as an outpatient * Oral agents are not recommended for inpatient use d/t drug interactions, changing PO intake, and difficulty titrating for acute hyper/hypoglycemia. ADA recommends re-initiating outpatient oral agents 1-2 days prior to discharge if/when appropriate if they were held on admission. * Will hold oral agents for admission and utilize SQ basal bolus insulin regimen which is the recommended regimen for inpatient glycemic control. * Will initiate weight based insulin dosing for insulin yash patient and titrate based on BSG trends. * Pt did receive Dexamethasone 8mg IV in OR- will give a one time dose of NPH to cover the hyperglycemic effects of a one time long acting steroid. Will dose conservatively since BSG is NOT above 150 mg/dl PLAN FOR INPATIENT GLYCEMIC CONTROL: * Hold outpatient oral diabetes medications * Basal insulin * none * Bolus insulin * NovoLog per scale ACHS or Q6hrs while NPO * Goal Range: Low 110 mg/dL - High 140 mg/dL * Correction Factor: 20 mg/dL/unit * Nutritional / Prandial insulin per carb ratio of 1 unit per 7 grams CHO consumed PLAN FOR DISCHARGE: * No changes needed to outpatient regimen at DC. A1c is in goal range.
[2021-07-20] MEDS: oxyCODONE HCL IR 5 MG TAB (IMMEDIATE RELEASE) PO PRN (17:45)
[2021-07-20] MEDS: MULTIVITAMIN TAB PO SCH (20:41)
[2021-07-20] MEDS: DOCUSATE SODIUM/SENNA 50/8.6MG TAB PO SCH (20:41)
[2021-07-20] MEDS: ATORVASTATIN 20 MG TAB PO SCH (20:41)
[2021-07-20] MEDS: TERAZOSIN HCL 5 MG CAP PO SCH (20:42)
[2021-07-20] MEDS: amLODIPine BESYLATE 5 MG TAB PO SCH (20:42)
[2021-07-20] MEDS: CALCITRIOL 0.25 MCG CAPSULE PO SCH (20:42)
[2021-07-20] MEDS: ASPIRIN 81 MG ECTAB PO SCH (20:42)
[2021-07-20] MEDS: FINASTERIDE 5 MG TAB PO SCH (20:43)
[2021-07-21] MEDS: POLYETHYLENE (MIRALAX) 17 GM PACK PO SCH (05:07)
[2021-07-21] MEDS: oxyCODONE HCL IR 5 MG TAB (IMMEDIATE RELEASE) PO PRN ×2 (05:56→10:25)
[2021-07-21] MEDS: dexAMETHasone 8 MG in SYRINGE 0 ML IV SCH (08:31)
[2021-07-21] MEDS: lisinopril 40 MG TAB PO SCH (08:31)
[2021-07-21] MEDS: TRIAMTERENE/HCTZ 37.5/25MG TAB PO SCH (08:31)
[2021-07-21] MEDS: POTASSIUM CHLORIDE CRTAB 20 MEQ TABCR PO SCH (08:32)
[2021-07-21] MEDS: INSULIN ASPART 100 UNITS/ML 3 ML PEN SC SCH (08:32)
[2021-07-21] MEDS: SERTRALINE HCL 100 MG TABLET PO SCH (08:32)
--- NOTE | 2021-07-21 10:16 | Discharge Summary ---
Date of Service July 21, 2021 Admission HPI Per Admitting Provider This is a 71-year-old male that presents with chronic back and bilateral leg pain after failing course of nonoperative care is here for surgical invention. Principal Diagnosis Lumbar spinal stenosis with neurogenic claudication Discharge Data Allergies Allergy/AdvReac Type Severity Reaction Status Date / Time No Known Allergies Allergy Verified 07/18/21 06:22 Consultations 07/18/21 12:05 Consult Hospitalist Routine Procedures Performed Operation Date: 07/18/21 07:45 Actual Procedures p L2-L4 Revision Decompression, L2-S1 Fusion, Spinal Cord Monitoring(Not Applicable) - Carlos Rogel DO Ordered Studies 07/18/21 07:45 [place] lumbar spine 2-3V Routine Hospital Course (1) Neurogenic claudication due to lumbar spinal stenosis: Patient with lumbar decompression fusion tolerated so was taken to orthopedic for postoperative. Postop day 1 he was up and ambulating Isai postop day or 2 postop day #3 pain was well controlled JAYLAN drain decreasing appropriately. Excellent strength testing. Separately discharged home. Discharge orders instructions were on the chart for further review. Total Time Total Time Spent Total Time Spent (In Minutes): 20 minutes Discharge Plan Discharge Items Patient Disposition: Home - Self-Care Reason For Visit: Spinal Stenosis, Lumbar Region without Neurogenic Discharge Diagnosis: Lumbar spinal stenosis with neurogenic claudication Activity: As commented below Non-emergency contact: Primary Care Provider Call non-emergency contact if: you have any medication questions Follow-up/Referrals: PCP,NO [Primary Care Provider] - Diet: Regular Addtl Attending Provider Instructions: ACTIVITY RECOMMENDATIONS: SELF CARE INSTRUCTIONS AFTER THORACIC/LUMBAR FUSIONS 1. You may walk to your tolerance. It is good exercise for your legs and back. Expect some back and intermittent leg aches and pains. 2. You may perform "counter-top" level activities (make a sandwich, angela with a project, etc.). 3. No bending or lifting of more than 10 pounds or back twisting of any nature (roll like a log when turning in bed). 4. You may ride in a car for 20-30 minutes at a time. No driving until after your first visit with your doctor. 5. Frequent changes of position and restricting sitting to 30 minutes at a time will help limit the amount of back spasms and stiffness you may experience. 6. You may discontinue the use of ambulatory aids (cane, crutches, etc.) once your strength and confidence allow. 7. You may vehicle insurance agent the shower and let water strike your incision when you arrive home at least once daily. Do not take a tub bath, sit in a hot tub or go into a swimming pool until after your first recheck in the office. SPECIAL CARE INSTRUCTIONS: VERY IMPORTANT TO READ AND REVIEW A. Your surgical incision has been closed with a cosmetic suture under the skin that will dissolve in about 6 weeks. In 14 days, you can use a pair of clean scissors and cut the suture that is left outside of the skin at the ends of your incision. 1. The small skin tapes can be removed 7 days after surgery if they have not fallen off by that point. 2. You may keep the wound open to air as much as possible to promote healing after post-op day number 5 unless told otherwise by your doctor. 3. If you think the wound looks like it is becoming infected (redness or worsening drainage) and/or you are experiencing fever, chill or worsening back pain and muscle spasms, contact the office so that we may evaluate you as soon as possible. B. Complications are uncommon, but please contact us if you have any signs or symptoms of: 1. wound infection (fever higher than 102.5 degrees F, redness, separation of wound, drainage, or increasing pain from the incision) 2. blood clots in legs (pain, swelling, redness and warmth in legs) 3. urinary tract infection (fever higher than 102.5 degrees F, burning upon urination or increased frequency of urination) 4. nerve problems (inability to walk on your toes or heels, numbness, loss of bowel or bladder control) 5. any other symptoms that concern you C. Please call the office at if you have any concerns or questions about your operation or recovery. D. No smoking! Smoking drastically decreases the chance of a solid fusion. E. Do not take any anti-inflammatory medications (Indocin, Advil, Motrin, Aspirin, Naprosyn, etc.) as these may inhibit the chance of a solid fusion. Tylenol is okay to take for pain. MANAGING PAIN AFTER SPINAL SURGERY 1. Narcotic medication is intended for short-term use and will be provided for surgical pain. Surgical pain usually lasts for a period of 4-6 weeks. Narcotic medication includes Percocet, Vicodin, Darvocet, Tylenol #3 or Lortab. 2. Longer-term pain is more appropriately treated with non-narcotic medication such as Tylenol ES. 3. Muscle spasm is not appropriately treated with narcotics. Muscle relaxers such as Soma, Flexeril or Skelaxin can be used along with Tylenol ES. 4. Remember that we all live with some "aches and pains". This is not unusual or uncommon after an injury or as we get older. a. Back pain is expected and may include muscle spasms for 4 to 6 weeks after surgery. The pain should gradually improve. If the pain worsens for no apparent reason, please contact the office. b. Intermittent leg pain may also be experienced and should not be concerned about unless it worsens for no apparent reason. If so, please contact the office. 5. We will provide appropriate medication within the normal guidelines of their prescribed use. We will also be very cautious and aware of potential abuse and extended duration of patients' medication needs. a. Pain medications are for your comfort and to assist with sleep and rest so that the tissue can heal. They are not provided in order to return to normal activity and should not be used through the day. To do so or worsening pain at night can result from ongoing tissue damage and development of tolerance to the prescribed medicine. 6. Please allow 2-3 days to process refills. Prescriptions will not be mailed but must be picked up at the office. FOLLOW UP VISIT: Keep your scheduled follow-up appointment. Any questions, please call the office at . Pending Studies at Discharge: No Stand-Alone Forms: My [facility] [email or web address] (Wayin), Smoking Cessation Medications and DC Order Prescriptions: Continued atorvastatin 40 mg Tablet 20 mg PO HS RF: 0 aspirin 81 mg Tablet,Delayed Release (Dr/Ec) 81 mg PO QPM RF: 0 amlodipine 10 mg Tablet 10 mg PO QPM RF: 0 calcitriol 0.25 mcg Capsule 0.25 mcg PO QPM RF: 0 metformin 500 mg Tablet 500 mg PO BID RF: 0 sertraline 100 mg Tablet 100 mg PO QAM RF: 0 fosinopril 40 mg Tablet 40 mg PO QAM RF: 0 lidocaine 5 % Adhesive Patch,Medicated 1 patch TOPICAL DAILY PRN (Reason: Pain) RF: 0 finasteride 5 mg Tablet 5 mg PO QPM RF: 0 diclofenac sodium 1 % Gel 2 g TOPICAL BID PRN (Reason: Pain) RF: 0 potassium chloride 20 mEq Tablet Extended Release 20 meq PO QAM RF: 0 sildenafil [Viagra] 100 mg Tablet 100 mg PO DAILY PRN (Reason: Erectile Dysfunction) RF: 0 multivitamin Tablet 1 tab PO QPM RF: 0 triamterene-hydrochlorothiazid [Maxzide] 75-50 mg Tablet 1 tab PO QAM RF: 0 terazosin 10 mg Capsule 10 mg PO QPM RF: 0 Discharge Orders: Discharge Order (Routine); Ordered 07/21/21 Ordered By: Carlos Rogel Admission Data Admit Date/Time: 07/18/21 10:44 Attending Provider: Carlos Rogel Admit Provider: Carlos Rogel Primary Care Provider: PCP,IJEOMA
== END 2021-07-21 11:37 | disposition home or self-care (01) | DRG 455 ==
LOC: ASU 06:04 → 3E 10:44